=== PATIENT | female | born 1965 ===

== ENCOUNTER 2018-10-12 15:42 | Emergency (ER) | payer SELFPAY ==
[2018-10-12 15:56] VITALS: BP 118/63; PULSE 74; RESP 16; TEMP 98.2; O2SAT 98
[2018-10-12] MEDS ORDERED: PROPARACAINE/FLUORESCEIN SOD 100 DROP/5 ML BOTTLE OD STA (16:36)
[2018-10-12] MEDS ORDERED: PROPARACAINE/FLUORESCEIN SOD 100 DROP/5 ML BOTTLE ONE (17:05)
--- NOTE | 2018-10-12 17:47 | ED PDOC ---
HPI: Eye Injury/Pain Time Seen by Provider: 10/12/18 16:23 Chief Complaint (Nursing): Eye Problem Chief Complaint (Provider): Eye Problem History Per: Patient History/Exam Limitations: no limitations Current Symptoms Are (Timing): Still Present Additional Complaint(s): Patient is a 53 year old female who presents for evaluation of right irritation since x2 day ago. Patient states she struck herself in the eye with a broom handle by accident. Since incident, she reports she has had increasing eye irritation, discomfort, photophobia, redness, and tearing. Patient denies any foreign body sensation. She wears reading glasses normally but denies use of contacts. Otherwise: (-) fever, (-) changes in vision, (-) headache, (-) dizziness, (-) other injury (-) mucus discharge from eye. LMP: x2 weeks ago PMD: Fara Jones Past Medical History Reviewed: Historical Data, Nursing Documentation, Vital Signs Vital Signs: Last Vital Signs Temp 98.2 F 10/12/18 15:53 Pulse 74 10/12/18 15:53 Resp 16 10/12/18 15:53 BP 118/63 10/12/18 15:53 Pulse Ox 98 10/12/18 15:53 - Medical History PMH: No Chronic Diseases - Surgical History Surgical History: No Surg Hx - Family History Family History: States: Unknown Family Hx - Social History Current smoker - smoking cessation education provided: No Ex-Smoker (has not smoked in the last 12 months): No - Home Medications Home Medications: Ambulatory Orders Medication Instructions Recorded RX: Tobramycin 0.3% [Tobrex 0.3% 1 drop [facility] Q[facility] #[facility] - Allergies Allergies/Adverse Reactions: Allergies Allergy/AdvReac Type Severity Reaction Status Date / Time No Known Allergies Allergy Verified 10/12/18 15:56 Review of Systems ROS Statement: Except As Marked, All Systems Reviewed And Found Negative Constitutional: Negative for: Fever Eyes: Positive for: Pain, Other (tearing; photophobia). Negative for: Vision Change Neurological: Negative for: Headache, Dizziness Physical Exam - Reviewed Nursing Documentation Reviewed: Yes Vital Signs Reviewed: Yes - Physical Exam Comments: GENERAL APPEARANCE: Patient is awake, alert, oriented x 3, in no acute distress. HEENT: (-) facial swelling and erythema, (-) facial blisters. VISUAL ACUITIES: Left eye: 20/25; Right eye: 20/50; Both: 20/20. LIDS & LASHES: Normal. PUPILS: Pupils equal and reactive EOM's: Intact and painless LID EVERSION: (-) foreign body. CONJUNCTIVAE: Diffuse conjunctival injection of right eye. ANTERIOR CHAMBER: (-) foreign body, (-) hyphema. RESPIRATORY: lungs clear to auscultation bilaterally (-) rales (-) rhonchi (-) wheezing. Speaking in full sentences, respirations nonlabored. CARDIAC: RRR - ECG O2 Sat by Pulse Oximetry: 98 (RA) Pulse Ox Interpretation: Normal Medical Decision Making Medical Decision Making: Time: 16:35 Impression: Acute eye irritation, rule out conjunctival abrasion plan: --Flucaine eye drops 1 drop OD 1810 3mm linear are of fluoroscein uptake to the 9'o'clock position. In light of findings, Tobromycin ordered. 1914 On re-evaluation, patient reports improvement of symptoms. On exam, patient remains AAOx3, in no acute distress. Vitals stable. Lab/Diagnostic results d/w the patient in great detail. Diagnosis of conjunctival irritation/abrasion d/w the patient. Based on history, exam and diagnostic results, plan will be for outpatient follow up with PMD/ophtho. Patient instructed to follow-up with pmd / referral provided / the clinic in 1- 2 days without fail. Advised to take medication as prescribed. Return to the emergency room at any time for any new or worsening symptoms. Patient states she fully agrees with and understands discharge instructions. States that she agrees with the plan and disposition. Verbalized and repeated discharge instructions and plan. I have given the patient opportunity to ask any additional questions. Scribe Attestation: Documented by Babak Garcia, acting as a scribe for Sara Claros. Provider Scribe Attestation: All medical record entries made by the Scribe were at my direction and personally dictated by me. I have reviewed the chart and agree that the record accurately reflects my personal performance of the history, physical exam, medical decision making, and the department course for this patient. I have also personally directed, reviewed, and agree with the discharge instructions and disposition. Disposition - Clinical Impression Clinical Impression: Conjunctival abrasion, Irritation of right eye - Patient ED Disposition Is Patient to be Admitted: No Counseled Patient/Family Regarding: Studies Performed, Diagnosis, Need For Followup, Rx Given - Disposition Referrals: Lennox Rubin MD [Staff Provider] - Sourav Chaudhari MD [Family Provider] - Disposition: Routine/Home Disposition Time: 19:10 Condition: STABLE Additional Instructions: The emergency medical care you received today was directed at your acute symptoms. If you were prescribed any medication, please fill it and take as directed. It may take several days for your symptoms to resolve. Return to the Emergency Department if your symptoms worsen, do not improve, or if you have any other problems. Please contact your doctor in 2 days for re-evaluation and follow up / or call one of the physicians/clinics you have been referred to that are listed on the Patient Visit Information form that is included in your discharge packet. Bring any paperwork you were given at discharge with you along with any medications you are taking to your follow up visit. Our treatment cannot replace ongoing medical care by a primary care provider (PCP) outside of the emergency department. Prescriptions: RX: Tobramycin 0.3% [Tobrex 0.3% Ophth Soln] 1 drop OD Q8 #1 bottle Instructions: Corneal Abrasion Forms: [employer] (Chilean) Print Language: DANISH - POA Present On Arrival: None
[2018-10-12] MEDS ORDERED: Tobramycin 0.3% OPHT SOLN OD ONE (18:03)
== END 2018-10-12 19:56 | disposition home or self-care (01) ==
LOC: H.ER 15:42
DX: S05.01XA Injury of conjunctiva and corneal abrasion without foreign body, right eye, initial encounter (principal); Y92.89 Other specified places as the place of occurrence of the external cause